=== PATIENT | female | born 1970 | race Two or more races ===

== ENCOUNTER 2020-08-19 15:36 | Emergency (ER) | payer MEDICAID ==
[~2020-08-19] VITALS: Ht 162.6 cm; Wt 77.1 kg
[2020-08-19 17:18] VITALS: BP 113/72
== END 2020-08-19 17:16 | disposition home or self-care (01) ==
LOC: ED 15:36
DX: M79.644 Pain in right finger(s) (principal); E11.9 Type 2 diabetes mellitus without complications; Z90.49 Acquired absence of other specified parts of digestive tract; Z98.890 Other specified postprocedural states